=== PATIENT | male | born 1985 | race Caucasian/White ===

== ENCOUNTER 2018-04-09 15:05 | Emergency (ER) | payer SELFPAY ==
[~2018-04-09] VITALS: Ht 188 cm; Wt 95.0 kg
[~2018-04-09 15:05] MED LIST: IBUP-238 PO
[2018-04-09 15:53] VITALS: BP 146/70; PULSE 54; RESP 18; TEMP 98.4; O2SAT 99
[2018-04-09] MEDS ORDERED: IBUP1TAB7 PO (17:09)
[2018-04-09] MEDS ORDERED: CLIN300C5 PO (17:09)
--- NOTE | 2018-04-09 17:14 | PD ---
HPI Chief Complaint: Oral / Dental Pain or Problem Time Seen by Provider: 17:04 Travel History International Travel<30 days: No Contact w/Intl Traveler<30days: No Traveled to known affect area: No History of Present Illness HPI 32-year-old male presents to the emergency room for evaluation of right upper dental pain for the past day. Patient states he broke his tooth about a year ago but has not had any problems with it. This morning when he woke up he began to have severe, aching, throbbing tooth pain above the broken tooth. He applied Orajel but has not taken anything for symptoms. Pain is worsened with touching it. Denies any fever, chills, nausea, vomiting, or drainage. He has associated swelling. He has history of poor teeth due to drug use and poor dental hygiene. States he just got insurance and plans to make a follow-up appointment in a few weeks. PFSH Past Medical History Hx Anticoagulant Therapy: No Blood Disorders: No Bipolar Disorder: Yes (MANIC DEPRESSIVE) Anxiety: Yes Cancer: No Cardiovascular Problems: No Chemotherapy: No Cerebrovascular Accident: No Diabetes: No Diminished Hearing: No Endocrine: No Gastrointestinal Disorders: Yes Genitourinary: Yes (CONGENITAL RIGHT PELVIC KIDNEY) Immune Disorder: No Implanted Vascular Access Dvce: No Musculoskeletal: No Neurologic: No Psychiatric: Yes Reproductive: No Respiratory: No Immunizations Current: Yes Past Surgical History Appendectomy: Yes Hysterectomy: No Other Surgery: No Social History Alcohol Use: Yes (DAILY) Tobacco Use: Yes (1PPD) Substance Use: Yes (IV USER DILAUDID, METHADONE) Allergies-Medications (Allergen,Severity, Reaction): Coded Allergies: No Known Allergies (Verified Adverse Reaction, Unknown, 04/09/18) Reported Meds & Prescriptions Reported Meds & Active Scripts Active Clindamycin (Clindamycin HCl) 300 Mg Cap 300 Mg PO Q6H 10 Days Ibuprofen 800 Mg Tab 800 Mg PO Q8H PRN Review of Systems Except as stated in HPI: all other systems reviewed are Neg Physical Exam Narrative GENERAL: Well-nourished, well-developed male in no acute distress. Afebrile. Ambulatory. SKIN: Focused skin assessment warm/dry. HEAD: Normocephalic. EYES: No scleral icterus. No injection or drainage. DENTAL: Moderate decay throughout. No malocclusion. Tooth #7 is broken and decaying. There is significant surrounding erythema. No obvious edema. No obvious abscess. There is mild tenderness and edema to the right maxillary sinuses. NECK: Supple, trachea midline. No JVD or lymphadenopathy. CARDIOVASCULAR: Regular rate and rhythm without murmurs, gallops, or rubs. RESPIRATORY: Breath sounds equal bilaterally. No accessory muscle use. Data Data Last Documented VS Vital Signs Date Time Temp Pulse Resp B/P (MAP) Pulse Ox O2 Delivery O2 Flow Rate FiO2 04/09/18 15:53 98.4 54 18 146/70 (95) 99 MDM Medical Decision Making Medical Screen Exam Complete: Yes Emergency Medical Condition: Yes Medical Record Reviewed: Yes Differential Diagnosis Dental abscess, dentalgia, gingivitis Narrative Course 32-year-old male presents to the emergency room for evaluation of the past day. States he broke that tooth about 1 year ago and has had no problems with it until today. No systemic signs of infection. Physical exam is reassuring. Tooth #7 is broken with significant decay but no obvious abscess. No surrounding erythema. No evidence of Sebastián's. There is mild right-sided maxillary sinus swelling. Patient was given prescriptions for ibuprofen and clindamycin. Told to follow-up with a dentist which he plans to do in a few weeks once his insurance kicks in. Will return for worsening symptoms. He understands and agrees to plan. Diagnosis Primary Impression: Dental abscess Referrals: Primary Care Physician Additional Instructions: Rest and drink plenty of fluids. Ibuprofen with food as directed, as needed for pain. Clindamycin as directed, until gone. Follow-up with a dentist. Return to the emergency room for worsening symptoms. Med/Other Pt SpecificInfo: Prescription(s) given Scripts Clindamycin (Clindamycin) 300 Mg Cap 300 MG PO Q6H for Infection for 10 Days, #40 CAP 0 Refills Prov: Karen Wright MD 04/09/18 Ibuprofen (Ibuprofen) 800 Mg Tab 800 MG PO Q8H Y for Pain/Inflammation, #21 TAB 0 Refills Prov: Karen Wright MD 04/09/18 Disposition: 01 DISCHARGE HOME Condition: Stable Caro Mckeon Apr 09, 2018 17:14
== END 2018-04-09 17:20 | disposition home or self-care (01) ==
LOC: NEPK 15:05
DX: K04.7 Periapical abscess without sinus (principal); F17.200 Nicotine dependence, unspecified, uncomplicated
CPT/HCPCS: 99283

== ENCOUNTER 2018-10-11 01:55 | Inpatient (IN) ==
[2018-10-11] MEDS ORDERED: Sod Chloride 0.9% Inj 1,000 ML IV.SIG ONE (02:03)
--- NOTE | 2018-10-11 02:10 | ED ---
HPI General Chief complaint: Alcohol Stated complaint: poss od Time Seen by Provider: 10/11/18 01:58 Source: patient Mode of arrival: EMS Limitations: no limitations History of Present Illness HPI narrative: 33-year-old male brought in by EMS for evaluation of alcohol and opiate withdrawal. Patient states that he drinks alcohol heavily between 2-3 pints of whiskey daily as well as uses IV heroin heavily. His last alcohol intake and last use of heroin was yesterday morning. He states he ran out of both of these substances, and that is why he has not had any since. He reports feeling very shaky and tremulous with extreme dry mouth and nausea. He has not vomited. He is describing moderate to severe generalized body aches that are constant. No fevers, cough, recent illness. Patient also believes that there may be a hypodermic/insulin needle that broke off in his left AC fossa that occurred yesterday morning. He admits to feeling depressed, however denies suicidal ideation. Patient presented similarly back in September of this year, however he did not want to be admitted, states that he has not followed up with [facility], however every time he goes there there are no beds available for him. Related Data Home Medications Medication Instructions Recorded Confirmed clonidine HCl 0.1 mg PO BID PRN 10/11/18 10/11/18 Previous Rx's Medication Instructions Recorded chlordiazepoxide HCl 25 mg PO Q6-8H PRN #12 cap 09/12/18 Allergies Allergy/AdvReac Type Severity Reaction Status Date / Time No Known Allergies Allergy Verified 08/17/18 12:11 Review of Systems ROS: all other systems reviewed are negative [facility] Medical History Medical History Alcohol abuse (Acute) Alcohol withdrawal seizure (Acute) Bipolar 1 disorder (Acute) Opiate addiction (Acute) Family History Family History Other Coronary artery disease Social History Social History Substance History: Active Abuse Second Hand Smoke Exposure: Yes Smoking Status: Current every day smoker Tobacco Type: Cigarettes How Often Do You Have a Drink Containing Alcohol: 4 or more times a week Recent Travel in [facility] within the Last 8 Weeks: No Recent Out of Country Travel within the Last 8 Weeks: No Immunization History Tetanus Immunization Year if Known: 2018 Exam Narrative Exam Narrative: GENERAL: Well-developed, well-nourished, awake, alert, tremulous SKIN: Focused skin assessment warm/dry. Left antecubital fossa with track gramajo with mild erythema surrounding the vein, no fluctuance or induration HEAD: Atraumatic. Normocephalic. EYES: Pupils equal and round. No scleral icterus. No injection or drainage. ENT: No nasal bleeding or discharge. Mucous membranes pink and dry. NECK: Trachea midline. No JVD. No nuchal rigidity. CARDIOVASCULAR: Tachycardic, rate 140s, regular. No murmur appreciated. RESPIRATORY: No accessory muscle use. Clear to auscultation. Breath sounds equal bilaterally. GASTROINTESTINAL: Abdomen soft, non-tender, nondistended. MUSCULOSKELETAL: No obvious deformities. No clubbing. No cyanosis. No edema. NEUROLOGICAL: Awake and alert. No obvious cranial nerve deficits. Motor grossly within normal limits. Normal speech. PSYCHIATRIC: Appropriate mood and affect; insight and judgment normal. Course Initial Documented Vital Signs Pulse Rate 138 H 10/11/18 02:02 Respiratory Rate 28 H 10/11/18 02:02 Blood Pressure 145/85 H 10/11/18 02:02 Pulse Oximetry 100 10/11/18 02:02 Last Documented Vital Signs Temperature 98.5 F 10/11/18 03:20 Pulse Rate 122 H 10/11/18 04:45 Respiratory Rate 16 10/11/18 04:45 Blood Pressure 141/79 H 10/11/18 04:45 Pulse Oximetry 99 10/11/18 04:45 Critical Care Time Critical Care Time: Yes Total Critical Care Time: 45 Attestation: Aggregate critical care time was 45 minutes. Time to perform other separately billable procedures was not included in the critical care time. My time did not include minutes spent treating any other patients simultaneously or on activities that did not directly contribute to the patient's treatment. The services I provided to this patient were to treat and/or prevent clinically significant deterioration that could result in: , permanent disability, septic shock, worsening clinical condition I provided critical care services requiring my management, as noted below: Chart data review, documentation time, medication orders and management, vital sign assessments/reviewing monitor data, ordering and reviewing lab tests, ordering and interpreting/reviewing x-rays and diagnostic studies, care of the patient and discussion of the patient with the admitting physicians. Medical Decision Making MDM Narrative Medical decision making narrative: The patient arrives tachycardic with a heart rate of 138 with a temp of 99.1 F. His WBC count is 34. He is an IV drug user and believes that he may have a retained needle in his left AC. There is mild warmth and erythema to this area without fluctuance or induration, as well as an obvious track jeanna. There are no splinter hemorrhages, Osler nodes, Janeway lesions. I do not appreciate a murmur on cardiac exam. Patient was empirically started on IV vancomycin and IV Zosyn, and sepsis workup was performed. CBC is remarkable for leukocytosis of 34,000, left shift, 11% bands. CMP is remarkable for slightly elevated LFTs. Lactic acid is 3.7. Left elbow x-ray shows a linear metallic foreign body in the subcutaneous tissue anteriorly. Chest x-ray shows no acute cardiopulmonary disease. Patient is positive for influenza B. UA is not suggestive of UTI. Patient meets sepsis criteria. He is also likely withdrawing from alcohol and opiates. He remains tachycardic despite receiving 3 L of normal saline IV. He will be given Tamiflu for testing positive for influenza B. I discussed the case with hospitalist Dr. Finley who will admit the patient to her service. Medical Screen Exam Complete: Yes Emergency Medical Condition: Yes Differential Diagnosis Differential Diagnosis: Alcohol withdrawal, opiate withdrawal, sepsis, dehydration/metabolic normality, polysubstance use/intoxication retained foreign body/needle in left arm Lab Data Result diagrams: 10/11/18 02:05 10/11/18 02:05 Lab Results 10/11/18 10/11/18 10/11/18 Range/Units 02:05 02:05 02:05 WBC 34.4 H (4.0-11.0) th/mm3 RBC 4.39 L (4.50-5.90) mil/mm3 Hgb 13.0 (13.0-17.0) gm/dL Hct 37.2 L (39.0-51.0) % MCV 84.8 (80.0-100.0) fL MCH 29.7 (27.0-34.0) pg MCHC 35.0 (32.0-36.0) % RDW 13.9 (11.6-17.2) % Plt Count 152 D (150-450) th/mm3 MPV 8.3 (7.0-11.0) fL Prelim Diff (Auto) Slide review pending Neut % (Auto) 89.7 H (16.0-70.0) % Lymph % (Auto) 6.5 L (9.0-44.0) % [place] % (Auto) 3.2 (0.0-8.0) % Eos % (Auto) 0.0 (0.0-4.0) % Baso % (Auto) 0.6 (0.0-2.0) % Neut # (Auto) 30.8 H (1.8-7.7) th/mm3 Lymph # (Auto) 2.3 (1.0-4.8) th/mm3 [place] # (Auto) 1.1 H (0.0-0.9) th/mm3 Eos # (Auto) 0.0 (0.0-0.4) th/mm3 Baso # (Auto) 0.2 (0.0-0.2) th/mm3 WBC Differential Manual diff final Seg Neuts % (Manual) 79 H (16-70) % Band Neuts % (Manual) 11 H (0-6) % Lymphocytes % (Manual) 5 L (9-44) % Monocytes % (Manual) 4 (0-8) % Eosinophils % (Manual) 1 (0-4) % Abs Neuts (Manual) 31.0 H (1.8-7.7) th/mm3 Differential Comment . Toxic Vacuolation Present H (None) Dohle Bodies Present H (None) Platelet Estimate Normal (Normal) Platelet Morphology Normal (Normal) RBC Morphology Normal (Normal) PT 10.5 (9.8-11.6) sec INR 1.0 Ratio APTT 34.5 H (23.4-31.7) sec Sodium 133 L (136-145) meq/L Potassium 3.2 L (3.5-5.1) meq/L Chloride 97 L (98-107) meq/L Carbon Dioxide 24.0 (21.0-32.0) meq/L Anion Gap 12 (5-15) meq/L BUN 14 (7-18) mg/dL Creatinine 0.96 (0.60-1.30) mg/dL Estimated GFR Greater than 89 (>89) mL/min Random Glucose 116 H (74-106) mg/dL Lactic Acid (0.4-2.0) mmol/L Calcium 8.2 L (8.5-10.1) mg/dL Magnesium 1.5 (1.5-2.5) mg/dL Total Bilirubin 0.3 (0.2-1.0) mg/dL AST 107 H (15-37) U/L ALT 115 H (12-78) U/L Alkaline Phosphatase 152 H (45-117) U/L Total Creatine Kinase (39-308) U/L Total Protein 7.0 (6.4-8.2) g/dL Albumin 3.1 L (3.4-5.0) g/dL Lipase 28 L (73-393) U/L Urine Color (Yellw/Straw) Urine Clarity (Clear) Urine pH (5.0-8.5) Ur Specific [place] (1.002-1.035) Urine Protein (Neg-Trace) mg/dL Urine Glucose (UA) (Negative) mg/dL Urine Ketones (Negative) mg/dL Urine Occult Blood (Negative) Urine Nitrate (Negative) Urine Bilirubin (Negative) Urine Urobilinogen (Less than 2) mg/dL Ur Leukocyte Esterase (Negative) Urine RBC (0-3) /hpf Urine WBC (0-5) /hpf Ur Microscopic Review Urine Opiates Screen (Neg) Ur Barbiturates Screen (Neg) Ur Amphetamines Screen (Neg) U Benzodiazepines Scrn (Neg) Urine Cocaine Screen (Neg) U Cannabinoids Screen (Neg) Serum Alcohol 32 H (0-5) mg/dL 10/11/18 10/11/18 10/11/18 Range/Units 02:30 02:40 03:00 WBC (4.0-11.0) th/mm3 RBC (4.50-5.90) mil/mm3 Hgb (13.0-17.0) gm/dL Hct (39.0-51.0) % MCV (80.0-100.0) fL MCH (27.0-34.0) pg MCHC (32.0-36.0) % RDW (11.6-17.2) % Plt Count (150-450) th/mm3 MPV (7.0-11.0) fL Prelim Diff (Auto) Neut % (Auto) (16.0-70.0) % Lymph % (Auto) (9.0-44.0) % [place] % (Auto) (0.0-8.0) % Eos % (Auto) (0.0-4.0) % Baso % (Auto) (0.0-2.0) % Neut # (Auto) (1.8-7.7) th/mm3 Lymph # (Auto) (1.0-4.8) th/mm3 [place] # (Auto) (0.0-0.9) th/mm3 Eos # (Auto) (0.0-0.4) th/mm3 Baso # (Auto) (0.0-0.2) th/mm3 WBC Differential Seg Neuts % (Manual) (16-70) % Band Neuts % (Manual) (0-6) % Lymphocytes % (Manual) (9-44) % Monocytes % (Manual) (0-8) % Eosinophils % (Manual) (0-4) % Abs Neuts (Manual) (1.8-7.7) th/mm3 Differential Comment Toxic Vacuolation (None) Dohle Bodies (None) Platelet Estimate (Normal) Platelet Morphology (Normal) RBC Morphology (Normal) PT (9.8-11.6) sec INR Ratio APTT (23.4-31.7) sec Sodium (136-145) meq/L Potassium (3.5-5.1) meq/L Chloride (98-107) meq/L Carbon Dioxide (21.0-32.0) meq/L Anion Gap (5-15) meq/L BUN (7-18) mg/dL Creatinine (0.60-1.30) mg/dL Estimated GFR (>89) mL/min Random Glucose (74-106) mg/dL Lactic Acid 3.7 H (0.4-2.0) mmol/L Calcium (8.5-10.1) mg/dL Magnesium (1.5-2.5) mg/dL Total Bilirubin (0.2-1.0) mg/dL AST (15-37) U/L ALT (12-78) U/L Alkaline Phosphatase (45-117) U/L Total Creatine Kinase 83 (39-308) U/L Total Protein (6.4-8.2) g/dL Albumin (3.4-5.0) g/dL Lipase (73-393) U/L Urine Color (Yellw/Straw) Urine Clarity (Clear) Urine pH (5.0-8.5) Ur Specific [place] (1.002-1.035) Urine Protein (Neg-Trace) mg/dL Urine Glucose (UA) (Negative) mg/dL Urine Ketones (Negative) mg/dL Urine Occult Blood (Negative) Urine Nitrate (Negative) Urine Bilirubin (Negative) Urine Urobilinogen (Less than 2) mg/dL Ur Leukocyte Esterase (Negative) Urine RBC (0-3) /hpf Urine WBC (0-5) /hpf Ur Microscopic Review Urine Opiates Screen Pos H (Neg) Ur Barbiturates Screen Neg (Neg) Ur Amphetamines Screen Neg (Neg) U Benzodiazepines Scrn Neg (Neg) Urine Cocaine Screen Neg (Neg) U Cannabinoids Screen Neg (Neg) Serum Alcohol (0-5) mg/dL 10/11/18 Range/Units 03:00 WBC (4.0-11.0) th/mm3 RBC (4.50-5.90) mil/mm3 Hgb (13.0-17.0) gm/dL Hct (39.0-51.0) % MCV (80.0-100.0) fL MCH (27.0-34.0) pg MCHC (32.0-36.0) % RDW (11.6-17.2) % Plt Count (150-450) th/mm3 MPV (7.0-11.0) fL Prelim Diff (Auto) Neut % (Auto) (16.0-70.0) % Lymph % (Auto) (9.0-44.0) % [place] % (Auto) (0.0-8.0) % Eos % (Auto) (0.0-4.0) % Baso % (Auto) (0.0-2.0) % Neut # (Auto) (1.8-7.7) th/mm3 Lymph # (Auto) (1.0-4.8) th/mm3 [place] # (Auto) (0.0-0.9) th/mm3 Eos # (Auto) (0.0-0.4) th/mm3 Baso # (Auto) (0.0-0.2) th/mm3 WBC Differential Seg Neuts % (Manual) (16-70) % Band Neuts % (Manual) (0-6) % Lymphocytes % (Manual) (9-44) % Monocytes % (Manual) (0-8) % Eosinophils % (Manual) (0-4) % Abs Neuts (Manual) (1.8-7.7) th/mm3 Differential Comment Toxic Vacuolation (None) Dohle Bodies (None) Platelet Estimate (Normal) Platelet Morphology (Normal) RBC Morphology (Normal) PT (9.8-11.6) sec INR Ratio APTT (23.4-31.7) sec Sodium (136-145) meq/L Potassium (3.5-5.1) meq/L Chloride (98-107) meq/L Carbon Dioxide (21.0-32.0) meq/L Anion Gap (5-15) meq/L BUN (7-18) mg/dL Creatinine (0.60-1.30) mg/dL Estimated GFR (>89) mL/min Random Glucose (74-106) mg/dL Lactic Acid (0.4-2.0) mmol/L Calcium (8.5-10.1) mg/dL Magnesium (1.5-2.5) mg/dL Total Bilirubin (0.2-1.0) mg/dL AST (15-37) U/L ALT (12-78) U/L Alkaline Phosphatase (45-117) U/L Total Creatine Kinase (39-308) U/L Total Protein (6.4-8.2) g/dL Albumin (3.4-5.0) g/dL Lipase (73-393) U/L Urine Color Colorless (Yellw/Straw) Urine Clarity Clear (Clear) Urine pH 8.0 (5.0-8.5) Ur Specific [place] 1.002 (1.002-1.035) Urine Protein Negative (Neg-Trace) mg/dL Urine Glucose (UA) Negative (Negative) mg/dL Urine Ketones Negative (Negative) mg/dL Urine Occult Blood Negative (Negative) Urine Nitrate Negative (Negative) Urine Bilirubin Negative (Negative) Urine Urobilinogen Less than 2 (Less than 2) mg/dL Ur Leukocyte Esterase Negative (Negative) Urine RBC Less than 1 (0-3) /hpf Urine WBC Less than 1 (0-5) /hpf Ur Microscopic Review Not Reportable Urine Opiates Screen (Neg) Ur Barbiturates Screen (Neg) Ur Amphetamines Screen (Neg) U Benzodiazepines Scrn (Neg) Urine Cocaine Screen (Neg) U Cannabinoids Screen (Neg) Serum Alcohol (0-5) mg/dL Imaging Data Radiologist's impression: Elbow X-Ray 10/11/18 02:05 CONCLUSION: Foreign body as detailed above. Chest X-Ray 10/11/18 03:29 CONCLUSION: No acute cardiopulmonary disease. Discharge Plan Discharge Disposition Patient Disposition: ED Admit(ED Internal Use Only) Discharge Condition Condition: Stable Discharge Order Discharge Orders: ED Use Only Admit Order (Routine); Ordered 10/11/18 Ordered By: Jackosn Robbins Discharge Details Diagnosis: Sepsis, Alcohol withdrawal, Influenza B, Opiate withdrawal, Transaminitis, Foreign body in left upper extremity Physicians Team ED Provider: Jackson Robbins Primary Care Provider: Primary Care Allegra Dennis Attending Provider: Mirta Finley Discharge Interventions Interventions: Vital Signs Last Done: 10/11/18 03:20 Status ED Status: Admitted Patient
[2018-10-11] MEDS ORDERED: Sod Chloride 0.9% Inj 1,000 ML IV.SIG SCH ×2 (02:15→02:30)
[2018-10-11 02:21] LABS: Baso # (Auto) 0.2 th/mm3 (0.0-0.2); Baso % (Auto) 0.6 % (0.0-2.0); Hematocrit 37.2 % (39.0-51.0); Lymph # (Auto) 2.3 th/mm3 (1.0-4.8); Lymph % (Auto) 6.5 % (9.0-44.0); Mean Corpuscular Hemoglobin 29.7 pg (27.0-34.0); Mean Corpuscular Volume 84.8 fL (80.0-100.0); Mean Platelet Volume 8.3 fL (7.0-11.0); Mono # (Auto) 1.1 th/mm3 (0.0-0.9); Mono % (Auto) 3.2 % (0.0-8.0); Neut # (Auto) 30.8 th/mm3 (1.8-7.7); Neut % (Auto) 89.7 % (16.0-70.0); Platelet Count 152 th/mm3 (150-450); Red Blood Count 4.39 mil/mm3 (4.50-5.90); Red Cell Distribution Width 13.9 % (11.6-17.2); White Blood Count 34.4 th/mm3 (4.0-11.0)
[2018-10-11] MEDS ORDERED: Piperacil/Tazo 4.5 GM Premix 4.5 GM/100 ML BAG IV.SIG ONE (02:30)
[2018-10-11] MEDS ORDERED: Vancomycin Inj 1,000 MG in Sodium Chlor 0.9% Inj 250 ML IV.SIG ONE (02:30)
[2018-10-11] MEDS ORDERED: Acetaminophen 325 MG Tablet PO ONE (02:30)
[2018-10-11 02:34] LABS: Activated Partial Thrombo Time 34.5 sec (23.4-31.7); Alanine Aminotransferase 115 U/L (12-78); Albumin 3.1 g/dL (3.4-5.0); Anion Gap 12 meq/L (5-15); Aspartate Aminotransferase 107 U/L (15-37); Blood Urea Nitrogen 14 mg/dL (7-18); Calcium 8.2 mg/dL (8.5-10.1); Chloride 97 meq/L (98-107); Glomerular Filtration Rate Greater Than 89 mL/min (>89); Glucose,Random 116 mg/dL (74-106); Lipase 28 U/L (73-393); Magnesium 1.5 mg/dL (1.5-2.5); Potassium 3.2 meq/L (3.5-5.1); Prothrombin Time 10.5 sec (9.8-11.6); Sodium 133 meq/L (136-145)
[2018-10-11 02:36] LABS: Alkaline Phosphatase 152 U/L (45-117)
--- NOTE | 2018-10-11 02:37 | XR ---
EXAM DATE: 10/11/2018 2:34 AM EST AGE/SEX: 33 years / Male INDICATIONS: Possible broken off hypodermic needle foreign body in the left AC. CLINICAL DATA: This is the patient's initial encounter. Patient reports that signs and symptoms have been present for 1 day and indicates a pain score of 7/10. MEDICAL/SURGICAL HISTORY: None. None. COMPARISON: No prior exams available for comparison. FINDINGS: Bony structures are intact and in normal alignment. Joints are intact without dislocation or signifi cant arthropathy. Osseous density is normal. Small metallic foreign body is seen within the subcutan eous tissues of the antecubital fossa. This is fairly superficial within the subcutaneous tissues jus t deep to the skin surface. CONCLUSION: Foreign body as detailed above. Electronically signed by: Taran Mckeon MD 10/11/2018 2:35 AM EST
[2018-10-11 03:19] LABS: Alcohol 32 mg/dL (0-5)
[2018-10-11 03:21] LABS: Eosinophils 1 % (0-4); Lymphocytes 5 % (9-44); Monocytes 4 % (0-8)
[2018-10-11 03:22] LABS: Dohle Bodies Present; Platelet Estimate Normal (Normal); Platelet Morphology Normal (Normal); RBC Morphology Normal (Normal); Toxic Vacuolation Present
[2018-10-11 03:39] LABS: Amphetamine Screen,Urine Neg (Neg); Barbiturate Screen,Urine Neg (Neg); Cannabinoid Screen,Urine Neg (Neg); Cocaine Screen,Urine Neg (Neg)
[2018-10-11 03:45] LABS: Opiate Screen,Urine Pos (Neg)
--- NOTE | 2018-10-11 03:50 | XR ---
EXAM DATE: 10/11/2018 3:38 AM EST AGE/SEX: 33 years / Male INDICATIONS: Cough, shortness of breath. CLINICAL DATA: This is the patient's initial encounter. Patient reports that signs and symptoms have been present for 1 day and indicates a pain score of 0/10. MEDICAL/SURGICAL HISTORY: None. None. COMPARISON: [facility], CHEST SINGLE AP, 07/27/2013. . FINDINGS: A single AP view of the chest demonstrates the lungs to be symmetrically aerated without evidence of mass, infiltrate or effusion. The cardiomediastinal contours are unremarkable. Posttraumatic osteoly sis involving the distal left clavicle is a new finding from the prior study. CONCLUSION: No acute cardiopulmonary disease. Electronically signed by: Taran Mckeon MD 10/11/2018 3:49 AM EST
[2018-10-11 03:52] LABS: Bilirubin,Urine Negative (Negative); Clarity,Urine Clear (Clear); Color,Urine Colorless (Yellw/Straw); Glucose,Urine (UA) Negative (Negative); Leukocyte Esterase,Urine Negative (Negative); Nitrite,Urine Negative (Negative); Specific Gravity,Urine 1.002 (1.002-1.035)
[2018-10-11] MEDS ORDERED: Bisacodyl 10 MG Supp RECTAL PRN (04:04)
[2018-10-11] MEDS ORDERED: Naloxone Inj 0.4 MG/ML Vial IV.PUSH PRN (04:04)
[2018-10-11] MEDS ORDERED: Acetaminophen 325 MG Tablet PO PRN (04:04)
[2018-10-11] MEDS ORDERED: Haloperidol Inj 5 MG/ML Ampul IV.PUSH PRN (04:06)
[2018-10-11] MEDS ORDERED: Vancomycin Consult Pharmacy OTHER PRN (04:09)
[2018-10-11] MEDS ORDERED: Ibuprofen 600 MG Tablet PO PRN (04:13)
[2018-10-11] MEDS ORDERED: Potassium Chlor 20 mEq Premix 20 MEQ/100 ML PIGGYBACK IV.SIG SCH (04:15)
[2018-10-11] MEDS: Sod Chloride 0.9% Inj 1,000 ML IV.CONT SCH ×3 (04:26→19:52)
--- NOTE | 2018-10-11 04:58 | P.HP ---
History of Present Illness Service: [facility] Primary Care Physician: No Primary Care Physician History of Present Illness: 33-year-old male with past medical history significant for alcohol and opiate abuse presents to the emergency department for the evaluation of sudden onset headache, nausea/vomiting and shaking. The patient reports his symptoms started around 6 PM last night. He initially thought that he was going through alcohol and opiate withdrawal as it is been approximately 24 hours since his last use of either substance. He reports to using 1 g of heroin intravenously daily and drinking 2 pints of hard alcohol daily. He has previously had a seizure from alcohol withdrawal. He denies any fevers/chills. No chest pain or shortness of breath. No focal neurologic deficits. No back pain. Inpatient Certification: I certify that the inpatient services were ordered in accordance with Medicare regulations governing the order. This includes certification that hospital inpatient services are reasonable and necessary and in the case of services not specified as inpatient-only under 42 CFR 419.22(n), that they are appropriately provided as inpatient services in accordance to with the 2-midnight benchmark under 43 CFR 412.3(e) Estimated Total Length of Stay (Days): 3 Plans for Post Hospital Care: Home Review of Systems All other systems reviewed negative except as stated in HPI PMFSH - History History Provided By: Patient - Medical History Medical History: Medical History (Last Updated 10/11/18 @ 04:45 by Mirta Finley MD) Alcohol abuse Alcohol withdrawal seizure Bipolar 1 disorder Opiate addiction - Surgical History Surgical History: Surgical History (Last Reviewed 10/11/18 @ 04:45 by Mirta Finley MD) H/O shoulder surgery Hx of appendectomy - Family History Family History: Family History (Last Updated 10/11/18 @ 04:47 by Mirta Finley MD) Other Coronary artery disease - Social History I have reviewed the patient's Social History: Yes - Tobacco History Second Hand Smoke Exposure: Yes Tobacco Use In Past 30 Days: Yes Smoking Status: Current every day smoker Tobacco Type: Cigarettes - Alcohol History How Often Do You Have a Drink Containing Alcohol: 4 or more times a week - Substance Use History Substance History: Active Abuse - Substance Use Type Heroin Status: Active - Travel History Recent Travel in the [place] Within the Last 8 Weeks: No Recent Travel Out of the Country Within the Last 8 Weeks: No - Immunization History Tetanus Immunization: Unsure Tetanus Immunization Year if Known: 2017 Medications and Allergies Active Medications: Active Medications Acetaminophen (Tylenol) 650 mg PO Q4H PRN PRN Reason: headache/fever/pain1-4 Al Hydroxide/Mg Hydroxide (Milk Of Magnesia Liq) 30 ml PO Q12H PRN PRN Reason: Mild Constipation Bisacodyl (Dulcolax Supp) 10 mg RECTAL DAILY PRN PRN Reason: SEVERE CONSITIPATION Clonidine HCl (Catapres) 0.1 mg PO Q6H PRN PRN Reason: For SBP >/= 180, DBP >/= 100 Flumazenil (Romazecon Inj) 0.2 mg IV.PUSH Q1M PRN PRN Reason: OVERSEDATION Haloperidol Lactate (Haldol Inj) 1 mg IV.PUSH Q15M PRN PRN Reason: for severe agitation Sodium Chloride (Ns Inj) 1,000 mls @ 150 mls/hr IV.CONT .Q6H40M SUSAN Last Admin: 10/11/18 04:26 Dose: 150 mls/hr Multivitamins 10 ml/ Folic (Acid 1 mg/ Sodium Chloride) 510.2 mls @ 125 mls/hr IV.SIG DAILY SUSAN Stop: 10/16/18 08:59 Thiamine HCl 100 mg/ Sodium (Chloride) 101 mls @ 100 mls/hr IV.SIG DAILY SUSAN Stop: 10/14/18 08:59 Potassium Chloride (Kcl 20 Meq Premix Inj) 20 meq in 100 mls @ 50 mls/hr IV.SIG Q2H SUSAN Stop: 10/11/18 08:14 Last Admin: 10/11/18 04:25 Dose: 50 mls/hr Piperacillin/Tazobactam/Dextrose (Zosyn 4.5 Gm Premix) 4.5 gm in 100 mls @ 200 mls/hr IV.SIG Q6H SUSAN Magnesium Sulfate/Dextrose (Magnesium Sulfate 1 Gm/D5w 100 Ml Premix) 100 mls @ 100 mls/hr IV.SIG Q1H SUSAN Stop: 10/11/18 06:59 Ibuprofen (Motrin) 600 mg PO Q6H PRN PRN Reason: pain scale 5 to 10 Lactulose (Lactulose Liq) 30 ml PO DAILY PRN PRN Reason: SEVERE CONSITIPATION Lorazepam (Ativan) 1 mg PO Q4H PRN PRN Reason: for CIWA 8-10 Lorazepam (Ativan) 2 mg PO Q2H PRN PRN Reason: for CIWA 11-14 Lorazepam (Ativan Inj) 2 mg IV.PUSH Q2H PRN PRN Reason: for CIWA 11-14 Lorazepam (Ativan Inj) 2 mg IV.PUSH Q1H PRN PRN Reason: for CIWA 15-20 Lorazepam (Ativan Inj) 2 mg IV.PUSH Q15M PRN PRN Reason: for CIWA > 20 Lorazepam (Ativan Inj) 1 mg IV.PUSH Q4H PRN PRN Reason: for CIWA 8-10 Naloxone HCl (Narcan Inj) 0.4 mg IV.PUSH UNSCH PRN PRN Reason: SEE LABEL COMMENTS Ondansetron HCl (Zofran Inj) 4 mg IV.PUSH Q6H PRN PRN Reason: NAUSEA OR VOMITING Oseltamivir Phosphate (Tamiflu) 75 mg PO BID [facility] Stop: 10/16/18 08:59 Pharmacy Profile Note (Vancomycin Consult Pharmacy) 1 each OTHER UNSCH PRN PRN Reason: Pharmacy to dose Senna/Docusate Sodium (Kathie-Colace) 1 tab PO BID [facility] Sennosides (Senokot) 17.2 mg PO Q12H PRN PRN Reason: Moderate Constipation Sodium Chloride (Ns Flush) 2 ml IV.FLUSH PRN PRN PRN Reason: FLUSH AFTER USING IV ACCESS Sodium Chloride (Ns Flush) 2 ml IV.FLUSH BID SUSAN Sodium Chloride (Ns Flush) 2 ml IV.FLUSH PRN PRN PRN Reason: FLUSH AFTER USING IV ACCESS Thiamine HCl (Vitamin B1) 100 mg PO DAILY [facility] Allergies Allergy/AdvReac Type Severity Reaction Status Date / Time No Known Allergies Allergy Verified 08/17/18 12:11 Home Medications Medication Instructions Recorded Confirmed Type clonidine HCl 0.1 mg PO BID PRN 10/11/18 10/11/18 History Exam Vital signs: Vital Signs 10/11/18 02:02 10/11/18 02:27 10/11/18 03:20 Temperature 99.1 F 98.5 F Pulse Rate 138 H 136 H 110 H Respiratory Rate 28 H 25 H 13 Blood Pressure 145/85 H 145/85 H 144/82 H Pulse Oximetry 100 100 100 Intake & Output 10/10/18 10/10/18 10/11/18 06:59 18:59 06:59 Intake Total 2350 / 2350 Balance 2350 / 2350 Weight 74.843 kg Intake: IV 2350 / 2350 Zosyn 4.5 GM Premix 4.5 gm In 100 / 100 100 ml @ 200 mls/hr IV.SIG ONCE ONE Rx#:[id number] NS Inj 1,000 ML @ 1000 mls/hr 1999 / 1999 IV.SIG BOLUS SUSAN Rx#:[id number] Vancomycin Inj 1,000 MG In NS 250 / 250 Inj 250 ML @ 250 mls/hr IV.SIG ONCE ONE Rx#:[id number] Narrative: Gen.: Pale male, lying in bed, shaking Head: Normocephalic. Atraumatic. EENT: Pupils equal round and reactive to light. Nose without drainage. Airway intact. Throat without injection. Cardiovascular: Regular rate and rhythm. No murmurs, rubs or gallops. Respiratory: Lungs clear to auscultation bilaterally. No wheezes or rhonchi. Abdomen: Soft, nontender, nondistended. No peritoneal signs. Musculoskeletal: No gross deformities. No edema. Skin: No obvious rashes or erythema. Neuro: Sensory and motor grossly intact. Cranial nerves II through XII grossly intact. Results - Labs CBC & Chem 7: 10/11/18 02:05 10/11/18 02:05 Labs: Laboratory Results - last 24 hr 10/11/18 10/11/18 10/11/18 02:05 02:05 02:05 WBC 34.4 H RBC 4.39 L Hgb 13.0 Hct 37.2 L MCV 84.8 MCH 29.7 MCHC 35.0 RDW 13.9 Plt Count 152 D MPV 8.3 Prelim Diff (Auto) Slide review pending Neut % (Auto) 89.7 H Lymph % (Auto) 6.5 L [place] % (Auto) 3.2 Eos % (Auto) 0.0 Baso % (Auto) 0.6 Neut # (Auto) 30.8 H Lymph # (Auto) 2.3 [place] # (Auto) 1.1 H Eos # (Auto) 0.0 Baso # (Auto) 0.2 WBC Differential Manual diff final Seg Neuts % (Manual) 79 H Band Neuts % (Manual) 11 H Lymphocytes % (Manual) 5 L Monocytes % (Manual) 4 Eosinophils % (Manual) 1 Abs Neuts (Manual) 31.0 H Differential Comment . Toxic Vacuolation Present H Dohle Bodies Present H Platelet Estimate Normal Platelet Morphology Normal RBC Morphology Normal PT 10.5 INR 1.0 APTT 34.5 H Sodium 133 L Potassium 3.2 L Chloride 97 L Carbon Dioxide 24.0 Anion Gap 12 BUN 14 Creatinine 0.96 Estimated GFR Greater than 89 Random Glucose 116 H Lactic Acid Calcium 8.2 L Magnesium 1.5 Total Bilirubin 0.3 AST 107 H ALT 115 H Alkaline Phosphatase 152 H Total Creatine Kinase Total Protein 7.0 Albumin 3.1 L Lipase 28 L Urine Color Urine Clarity Urine pH Ur Specific [place] Urine Protein Urine Glucose (UA) Urine Ketones Urine Occult Blood Urine Nitrate Urine Bilirubin Urine Urobilinogen Ur Leukocyte Esterase Urine RBC Urine WBC Ur Microscopic Review Urine Opiates Screen Ur Barbiturates Screen Ur Amphetamines Screen U Benzodiazepines Scrn Urine Cocaine Screen U Cannabinoids Screen Serum Alcohol 32 H 10/11/18 10/11/18 10/11/18 02:30 02:40 03:00 WBC RBC Hgb Hct MCV MCH MCHC RDW Plt Count MPV Prelim Diff (Auto) Neut % (Auto) Lymph % (Auto) [place] % (Auto) Eos % (Auto) Baso % (Auto) Neut # (Auto) Lymph # (Auto) [place] # (Auto) Eos # (Auto) Baso # (Auto) WBC Differential Seg Neuts % (Manual) Band Neuts % (Manual) Lymphocytes % (Manual) Monocytes % (Manual) Eosinophils % (Manual) Abs Neuts (Manual) Differential Comment Toxic Vacuolation Dohle Bodies Platelet Estimate Platelet Morphology RBC Morphology PT INR APTT Sodium Potassium Chloride Carbon Dioxide Anion Gap BUN Creatinine Estimated GFR Random Glucose Lactic Acid 3.7 H Calcium Magnesium Total Bilirubin AST ALT Alkaline Phosphatase Total Creatine Kinase 83 Total Protein Albumin Lipase Urine Color Urine Clarity Urine pH Ur Specific [place] Urine Protein Urine Glucose (UA) Urine Ketones Urine Occult Blood Urine Nitrate Urine Bilirubin Urine Urobilinogen Ur Leukocyte Esterase Urine RBC Urine WBC Ur Microscopic Review Urine Opiates Screen Pos H Ur Barbiturates Screen Neg Ur Amphetamines Screen Neg U Benzodiazepines Scrn Neg Urine Cocaine Screen Neg U Cannabinoids Screen Neg Serum Alcohol 10/11/18 03:00 WBC RBC Hgb Hct MCV MCH MCHC RDW Plt Count MPV Prelim Diff (Auto) Neut % (Auto) Lymph % (Auto) [place] % (Auto) Eos % (Auto) Baso % (Auto) Neut # (Auto) Lymph # (Auto) [place] # (Auto) Eos # (Auto) Baso # (Auto) WBC Differential Seg Neuts % (Manual) Band Neuts % (Manual) Lymphocytes % (Manual) Monocytes % (Manual) Eosinophils % (Manual) Abs Neuts (Manual) Differential Comment Toxic Vacuolation Dohle Bodies Platelet Estimate Platelet Morphology RBC Morphology PT INR APTT Sodium Potassium Chloride Carbon Dioxide Anion Gap BUN Creatinine Estimated GFR Random Glucose Lactic Acid Calcium Magnesium Total Bilirubin AST ALT Alkaline Phosphatase Total Creatine Kinase Total Protein Albumin Lipase Urine Color Colorless Urine Clarity Clear Urine pH 8.0 Ur Specific [place] 1.002 Urine Protein Negative Urine Glucose (UA) Negative Urine Ketones Negative Urine Occult Blood Negative Urine Nitrate Negative Urine Bilirubin Negative Urine Urobilinogen Less than 2 Ur Leukocyte Esterase Negative Urine RBC Less than 1 Urine WBC Less than 1 Ur Microscopic Review Not Reportable Urine Opiates Screen Ur Barbiturates Screen Ur Amphetamines Screen U Benzodiazepines Scrn Urine Cocaine Screen U Cannabinoids Screen Serum Alcohol - Imaging Impressions Elbow X-Ray 10/11/18 02:05 CONCLUSION: Foreign body as detailed above. Chest X-Ray 10/11/18 03:29 CONCLUSION: No acute cardiopulmonary disease. Caprini VTE Risk Assessment Caprini VTE Risk Assessment: No/Low Risk (score <= 1) Caprini Risk Assessment Model: Point Value = 1 Point Value = 2 Point Value = 3 Point Value = 5 Age 41-60 Minor surgery BMI > 25 kg/m2 Swollen legs Varicose veins or History of unexplained or recurrent spontaneous Oral contraceptives or hormone replacement Sepsis (< 1 month) Serious lung disease, including pneumonia (< 1 month) Abnormal pulmonary function Acute myocardial infarction Congestive heart failure (< 1 month) History of inflammatory bowel disease Medical patient at bed rest Age 61-74 Arthroscopic surgery Major open surgery (> 45 min) Laparoscopic surgery (> 45 min) Malignancy Confined to bed (> 72 hours) Immobilizing plaster cast Central venous access Age >= 75 History of VTE Family history of VTE Factor V Leiden Prothrombin [id number] Lupus anticoagulant Anticardiolipin antibodies Elevated serum homocysteine Heparin-induced thrombocytopenia Other congenital or acquired thrombophilia Stroke (< 1 month) Elective arthroplasty Hip, pelvis, or leg fracture Acute spinal cord injury (< 1 month) Prophylaxis Regimen: Total Risk Factor Score Risk Level Prophylaxis Regimen 0-1 Low Early ambulation 2 Moderate Order ONE of the following: *Sequential Compression Device (SCD) *Heparin 5000 units SQ BID 3-4 Higher Order ONE of the following medications: *Heparin 5000 units SQ TID *Enoxaparin/Lovenox 40 mg SQ daily (WT < 150 kg, CrCl > 30 mL/min) *Enoxaparin/Lovenox 30 mg SQ daily (WT < 150 kg, CrCl > 10-29 mL/min) *Enoxaparin/Lovenox 30 mg SQ BID (WT < 150 kg, CrCl > 30 mL/min) AND/OR *Sequential Compression Device (SCD) 5 or more Highest Order ONE of the following medications: *Heparin 5000 units SQ TID (Preferred with Epidurals) *Enoxaparin/Lovenox 40 mg SQ daily (WT < 150 kg, CrCl > 30 mL/min) *Enoxaparin/Lovenox 30 mg SQ daily (WT < 150 kg, CrCl > 10-29 mL/min) *Enoxaparin/Lovenox 30 mg SQ BID (WT < 150 kg, CrCl > 30 mL/min) AND *Sequential Compression Device (SCD) Assessment and Plan - Plan Assessment/plan: 1. Sepsis/influenza Patient with leukocytosis, tachycardia and elevated lactic acid Influenza positive Tamiflu Concern for bacteremia given IV drug abuse Blood cultures pending Vancomycin and Zosyn Follow cultures Passive IV fluid hydration 2. Alcohol/opiate withdrawal [facility] protocol Thiamine/multivitamins Patient reports he is actively trying to quit, has attempted to find a bed at [facility] on multiple occasions. Case management consulted to assist. FEN Regular diet NS at 150 cc/hour Electrolytes: Status post p.o. repletion of potassium, monitor BMP
[2018-10-11] MEDS ORDERED: Mag Sulf 1 gm/100 ml Premix 100 ML IV.SIG SCH ×2 (05:00→10:30)
--- NOTE | 2018-10-11 09:03 | US ---
EXAM DATE: 10/11/2018 8:45 AM EST AGE/SEX: 33 years / Male INDICATIONS: Evaluate for needle in left arm that broke off. CLINICAL DATA: This is the patient's initial encounter. Patient reports that signs and symptoms have been present for 1 day and indicates a pain score of 0/10. MEDICAL/SURGICAL HISTORY: . ETOH. Opiate abuse. Bipolar. IVDU. Appendectomy. Shoulder surger y. COMPARISON: C, ELBOW LIMITED LEFT 2V, 10/11/2018. . FINDINGS: Grayscale and Doppler ultrasound imaging of the left antecubital fossa was performed. A linear echoge gerald nonshadowing structure measuring 6 mm in length correlates with the a linear radiopaque foreign b storm identified on recent x-ray. It is located between 1 and 2 mm deep to the skin. There is no surrou nding fluid collection or abscess. Doppler imaging demonstrates no abnormality. CONCLUSION: The 6 mm needle fragment is identified in the antecubital fossa and measures approximately 2 mm from the skin surface. A jeanna was placed on the overlying skin. Electronically signed by: Jose F Chiang MD 10/11/2018 9:01 AM EST
[2018-10-11] MEDS: Oseltamivir Phosphate 75 MG Capsule PO SCH ×2 (10:05→20:01)
[2018-10-11 10:12] LABS: Baso # (Auto) 0.1 th/mm3 (0.0-0.2); Baso % (Auto) 0.3 % (0.0-2.0); Hematocrit 36.3 % (39.0-51.0); Hemoglobin 12.2 gm/dL (13.0-17.0); Lymph # (Auto) 1.6 th/mm3 (1.0-4.8); Lymph % (Auto) 6.7 % (9.0-44.0); Mean Corpuscular HGB Conc 33.7 % (32.0-36.0); Mean Corpuscular Hemoglobin 29.2 pg (27.0-34.0); Mean Corpuscular Volume 86.7 fL (80.0-100.0); Mean Platelet Volume 8.4 fL (7.0-11.0); Mono # (Auto) 0.8 th/mm3 (0.0-0.9); Neut # (Auto) 22.2 th/mm3 (1.8-7.7); Platelet Count 120 th/mm3 (150-450); Red Blood Count 4.19 mil/mm3 (4.50-5.90); Red Cell Distribution Width 14.3 % (11.6-17.2); White Blood Count 24.7 th/mm3 (4.0-11.0)
[2018-10-11 10:34] LABS: Anion Gap 8 meq/L (5-15); Blood Urea Nitrogen 9 mg/dL (7-18); Calcium 7.4 mg/dL (8.5-10.1); Carbon Dioxide 23.4 meq/L (21.0-32.0); Chloride 107 meq/L (98-107); Glomerular Filtration Rate Greater Than 89 mL/min (>89); Glucose,Random 111 mg/dL (74-106); Magnesium 2.1 mg/dL (1.5-2.5); Potassium 3.7 meq/L (3.5-5.1); Sodium 138 meq/L (136-145)
[2018-10-11 10:43] LABS: Albumin 2.6 g/dL (3.4-5.0); Calcium-Albumin Corrected 8.5 mg/dL (8.5-10.1)
[2018-10-11] MEDS: Piperacil/Tazo 4.5 GM Premix 4.5 GM/100 ML BAG IV.SIG SCH ×3 (10:50→20:01)
[2018-10-11 11:07] LABS: Hepatitits B Surface Antigen Nonreactive (Nonreactive)
[2018-10-11] MEDS: Senna/Docusate Sodium 8.6/50 MG Tablet PO SCH ×2 (11:07→20:01)
--- NOTE | 2018-10-11 11:22 | P.PNADD ---
Addendum to Inpatient Note Reason for Addendum: Additional Documentation Additional information: Nursing reports patient is scoring a 21 up to a 29 on his CIWA score. Patient himself denies any nausea or diarrhea. Says he has eaten much. Says his left arm does not hurt. Patient reports that the patient has a needle fragment that is being radiographically detected on an ultrasound in his left AC fossa. Patient says he recently broke this off. Given the pt's significant septic status, it warrants evaluation for removal - consulting hand surgery. Otherwise on exam is clear lungs bilaterally, unlabored breathing Slightly tachycardic rate, regular rhythm Awake and alert, appears to be having mild diffuse tremors secondary to withdrawal We will start low-dose scheduled Librium given his elevated LFTs
[2018-10-11 11:35] LABS: Hepatitis A IgM Antibody Nonreactive (Nonreactive)
[2018-10-11] MEDS: Multivitamin Inj 10 ML, Folic Acid Inj 1 MG in Sodium Chlor 0.9% Inj 500 ML IV.SIG SCH (15:35)
[2018-10-11] MEDS: Vancomycin Inj 1,500 MG in Sodium Chlor 0.9% Inj 500 ML IV.SIG SCH ×2 (15:35→22:16)
--- NOTE | 2018-10-11 17:05 | ECG ---
Date Performed: 10/11/2018 Time Performed: 02:11:07 PTAGE: 33 years EKG: SINUS TACHYCARDIA POSSIBLE RIGHT VENTRICULAR CONDUCTION DELAY Compared to previous tracing, sinus rate is somewhat increased. EKG now shows normal R wave transition and the Left axis deviation has resolved ABNORMAL RHYTHM ECG PREVIOUS TRACING : 09/12/2018 15.27 DOCTOR: Elizabeth Thompson Interpretating Date/Time 10/11/2018 17:03:53
[2018-10-11] MEDS: Dexmedetomidine Inj 200 MCG in Sodium Chlor 0.9% Inj 50 ML IV.CONT PRN ×2 (17:33→19:54)
[2018-10-11] MEDS ORDERED: Dexmedetomidine Inj 1,000 MCG in Sodium Chlor 0.9% Inj 240 ML IV.CONT PRN (20:32)
[2018-10-12] MEDS: Sod Chloride 0.9% Inj 1,000 ML IV.CONT SCH (03:32)
[2018-10-12] MEDS: Piperacil/Tazo 4.5 GM Premix 4.5 GM/100 ML BAG IV.SIG SCH ×4 (03:33→22:11)
[2018-10-12 05:24] LABS: Baso # (Auto) 0.1 th/mm3 (0.0-0.2); Baso % (Auto) 0.5 % (0.0-2.0); Eos # (Auto) 0.2 th/mm3 (0.0-0.4); Eos % (Auto) 1.4 % (0.0-4.0); Hematocrit 37.4 % (39.0-51.0); Hemoglobin 12.5 gm/dL (13.0-17.0); Lymph # (Auto) 2.5 th/mm3 (1.0-4.8); Lymph % (Auto) 22.6 % (9.0-44.0); Mean Corpuscular HGB Conc 33.3 % (32.0-36.0); Mean Corpuscular Hemoglobin 29.5 pg (27.0-34.0); Mean Corpuscular Volume 88.7 fL (80.0-100.0); Mean Platelet Volume 8.6 fL (7.0-11.0); Mono # (Auto) 0.5 th/mm3 (0.0-0.9); Mono % (Auto) 4.3 % (0.0-8.0); Neut # (Auto) 7.9 th/mm3 (1.8-7.7); Neut % (Auto) 71.2 % (16.0-70.0); Platelet Count 110 th/mm3 (150-450); Red Blood Count 4.22 mil/mm3 (4.50-5.90); Red Cell Distribution Width 14.5 % (11.6-17.2); White Blood Count 11.1 th/mm3 (4.0-11.0)
[2018-10-12 05:30] LABS: Anion Gap 9 meq/L (5-15); Blood Urea Nitrogen 8 mg/dL (7-18); Calcium 7.4 mg/dL (8.5-10.1); Carbon Dioxide 20.2 meq/L (21.0-32.0); Chloride 112 meq/L (98-107); Glomerular Filtration Rate Greater Than 89 mL/min (>89); Glucose,Random 77 mg/dL (74-106); Magnesium 1.9 mg/dL (1.5-2.5); Potassium 3.8 meq/L (3.5-5.1); Sodium 141 meq/L (136-145)
[2018-10-12 05:37] LABS: Albumin 2.4 g/dL (3.4-5.0); Calcium-Albumin Corrected 8.7 mg/dL (8.5-10.1)
[2018-10-12] MEDS: Oseltamivir Phosphate 75 MG Capsule PO SCH ×2 (08:01→20:49)
[2018-10-12] MEDS: Thiamine Inj 100 MG in Sodium Chlor 0.9% Inj 100 ML IV.SIG SCH (08:02)
[2018-10-12] MEDS: Senna/Docusate Sodium 8.6/50 MG Tablet PO SCH ×2 (08:02→20:37)
[2018-10-12] MEDS: Multivitamin Inj 10 ML, Folic Acid Inj 1 MG in Sodium Chlor 0.9% Inj 500 ML IV.SIG SCH (11:00)
[2018-10-12] MEDS: Vancomycin Inj 1,500 MG in Sodium Chlor 0.9% Inj 500 ML IV.SIG SCH ×2 (11:00→22:56)
--- NOTE | 2018-10-12 12:26 | P.DIET ---
Nutritional Evaluation Type of nutrition evaluation: initial Nutrition consult regarding: Diet Evaluation Nutrition screening: Weight Loss > 10 lbs Screening comments: 10/12 WLS Objective - Diagnosis sepsis, influenza b, alcohol w/d, opiate w/d - Objective Body Mass Index: 21.9 % IBW: 89 (IBW = 196lb) Body Weight Used for Calculations: Actual (79.5kg) Energy Needs - Lower Range (kCal/kg): 30 Energy Needs - Upper Range (kCal/kg): 35 Lower Limit kCal/kg (kCals): 2,385 Upper Limit kCal/kg (kCals): 2,783 Lower Limit Protein Factor (Grams per Kg): 1.2 Upper Limit Protein Factor (Grams per Kg): 1.4 Lower Protein Needs (Protein): 95 Upper Protein Needs (Protein): 111 Dietitian Reviewed in Medical Record: Current diet, Curent medications, Intake & Output, Labs, Medical history Diet Order: regular Oral Diet Intake Amount: Poor <50% Objective Comments: PMH: alcohol abuse, withdrawal seizures, bipolar I disorder, opiate addiction Labs: MVI, tamiflu, zosyn, vit B1 Assessment Assessment: Pt currently at nutritional risk r/t reported unplanned wt loss for more than 10lbs. Pt currently consuming around 25-50% for most meals. RD to recommend Ensure Enlive TID as PO supplement for additional nutrition. Continue to monitor PO and supplement intake. Labs reviewed, dietitian following. Recommendations: 1. RD to recommend Ensure Enlive TID as PO supplement for additional nutrition 2. Continue to monitor PO and supplement intake 3. Dietitian following Dietitian to Monitor: Lab values, Supplement acceptance, Intake & Output, Diet tolerance, Weight change, PO Intake, Medical course
[2018-10-12] MEDS ORDERED: Acetaminophen 325 MG Tablet PO PRN (14:46)
[2018-10-12] MEDS ORDERED: Naloxone Inj 0.4 MG/ML Vial IV.PUSH PRN (14:46)
--- NOTE | 2018-10-12 14:59 | P.PNIM ---
Subjective Interval history: Plan poor appetite. Mild anxiety. Chills and fever. No complaint chest pain or shortness of breath or palpitations. Requesting clonidine and Ultram to help with drug and alcohol withdrawal. Patient still with muscle aches. Physical Exam Vital signs: Last Vital Signs Temp 98.5 F 10/12/18 12:00 Pulse 46 L 10/12/18 12:00 Resp 32 H 10/12/18 12:00 BP 164/93 H 10/12/18 12:00 Pulse Ox 95 10/12/18 12:00 Intake & Output 10/10/18 10/11/18 10/12/18 10/13/18 06:59 06:59 06:59 06:59 Intake Total 3450 / 3450 5582.2 / 5582.2 Output Total 1999 Balance 3450 / 3450 3582.2 / 3582.2 Weight 77.111 kg 77 kg Constitutional no acute distress Routine Respiratory Exam Present CTA bilaterally Routine Cardiovascular Exam Present RRR; Absent murmur Routine Abdominal Exam Present soft and normoactive bowel sounds; Absent tenderness and distended Routine Extremities Exam Absent cyanosis, clubbing and edema Routine Neurological Exam Present alert, oriented X3, moving all extremities and normal speech Results Labs CBC & Chem 7: 10/12/18 04:33 10/12/18 04:33 Labs: Microbiology 10/11/18 02:30 Blood - Peripheral Aerobic Blood Culture - Preliminary No growth in 1 day 10/11/18 02:30 Blood - Peripheral Anaerobic Blood Culture - Preliminary No growth in 1 day 10/11/18 02:40 Blood - Peripheral Aerobic Blood Culture - Preliminary No growth in 1 day 10/11/18 02:40 Blood - Peripheral Anaerobic Blood Culture - Preliminary No growth in 1 day Assessment and Plan (1) Sepsis: Code(s): A41.9 - Sepsis, unspecified organism Status: Acute (2) Influenza B: Code(s): J10.1 - Influenza due to other identified influenza virus with other respiratory manifestations Status: Acute (3) Opiate withdrawal: Code(s): F11.23 - Opioid dependence with withdrawal Status: Acute (4) Alcohol withdrawal: Code(s): F10.239 - Alcohol dependence with withdrawal, unspecified Status: Acute Plan 33-year-old white male with asked medical history for alcohol and opiate abuse presented with headache, nausea vomiting and chills Sepsis present on admission with leukocytosis, tachycardia with influenza- Continue Tamiflu Empiric IV Zosyn and vancomycin given due to history of IV drug use Preliminary blood culture shows no growth at this time, will discontinue antibiotics if remains negative. Leukocytosis has been trending down. Supportive care and IV fluid hydration Alcohol & opiate abuse with withdrawal Continue CIWA protocol Low-dose Librium Schedule clonidine Continue thiamine and multivitamins. Secession counseling and follow-up as an outpatient for continued drug rehab Anorexiastatus post dietitian evaluation, add in life supplement Hypokalemiareplete DVT prophylaxisSCD Transfer out of the intensive care unit Progress Note: Quality VTE Deep Vein Thrombosis/Pulmonary Embolism Present on Admission: No _ (1) Sepsis Qualifiers: Sepsis type: sepsis due to unspecified organism Qualified Code(s): A41.9 - Sepsis, unspecified organism (2) Alcohol withdrawal Qualifiers: Complication of substance-induced condition: uncomplicated Qualified Code(s) : F10.230 - Alcohol dependence with withdrawal, uncomplicated
[2018-10-12] MEDS ORDERED: Ibuprofen 600 MG Tablet PO PRN (15:04)
[2018-10-13] MEDS: Piperacil/Tazo 4.5 GM Premix 4.5 GM/100 ML BAG IV.SIG SCH ×4 (03:29→20:29)
[2018-10-13 05:40] LABS: Baso # (Auto) 0.1 th/mm3 (0.0-0.2); Baso % (Auto) 0.6 % (0.0-2.0); Eos # (Auto) 0.2 th/mm3 (0.0-0.4); Eos % (Auto) 1.9 % (0.0-4.0); Hematocrit 39.5 % (39.0-51.0); Hemoglobin 13.5 gm/dL (13.0-17.0); Lymph # (Auto) 2.1 th/mm3 (1.0-4.8); Lymph % (Auto) 21.2 % (9.0-44.0); Mean Corpuscular HGB Conc 34.1 % (32.0-36.0); Mean Corpuscular Hemoglobin 30.3 pg (27.0-34.0); Mean Corpuscular Volume 88.8 fL (80.0-100.0); Mean Platelet Volume 9.1 fL (7.0-11.0); Mono # (Auto) 0.7 th/mm3 (0.0-0.9); Mono % (Auto) 6.7 % (0.0-8.0); Neut # (Auto) 6.9 th/mm3 (1.8-7.7); Neut % (Auto) 69.6 % (16.0-70.0); Platelet Count 128 th/mm3 (150-450); Red Blood Count 4.45 mil/mm3 (4.50-5.90); Red Cell Distribution Width 13.9 % (11.6-17.2); White Blood Count 9.9 th/mm3 (4.0-11.0)
--- NOTE | 2018-10-13 08:12 | P.PNIM ---
Subjective Interval history: f/u; flu/ alcohol withdrawal in no acute distress. denies sob/ no fever. has mild abdominal pain and diarrhea. still somewhat anxious with some hand tremors. Physical Exam Vital signs: Vital Signs 10/12/18 12:00 10/12/18 13:00 10/12/18 13:01 Temperature 98.5 F Pulse Rate 46 L 77 52 L Respiratory Rate 32 H 34 H 37 H Blood Pressure 164/93 H 174/122 H Pulse Oximetry 95 93 L 97 10/12/18 13:30 10/12/18 14:00 10/12/18 14:30 Temperature Pulse Rate 49 L 49 L 50 L Respiratory Rate 30 H 33 H 26 H Blood Pressure 161/92 H 140/85 145/88 H Pulse Oximetry 95 97 95 10/12/18 15:00 10/12/18 15:31 10/12/18 16:00 Temperature 99.1 F Pulse Rate 50 L 50 L 50 L Respiratory Rate 29 H 29 H 30 H Blood Pressure 144/82 H 152/99 H 142/83 H Pulse Oximetry 95 96 95 10/12/18 20:00 10/13/18 00:00 10/13/18 04:00 Temperature 98.2 F 98.4 F 99.0 F Pulse Rate 103 H 53 L 88 Respiratory Rate 20 18 18 Blood Pressure 125/63 126/62 132/77 Pulse Oximetry 99 97 98 Intake & Output 10/12/18 10/13/18 10/13/18 18:59 06:59 18:59 Intake Total 2476.2 / 2476.2 755 / 755 Balance 2476.2 / 2476.2 755 / 755 Weight 78.2 kg Intake: IV 2476.2 / 2476.2 715 / 715 Precedex Inj 1,000 MCG In NS 150 / 150 Inj 240 ML @ 0.2 MCG/KG/HR 3.97 mls/hr IV.CONT TITRATE PRN Rx# :[id number] NS Inj 1,000 ML @ 150 mls/hr IV 1000 / 1000 .CONT .Q6H40M [facility] Rx#:[id number] MVI-12 Inj 10 ML Folvite Inj 1 510.2 / 510.2 MG In NS Inj 500 ML @ 125 mls/ hr IV.SIG DAILY [facility] Rx#: [id number] Zosyn 4.5 GM Premix 4.5 gm In 200 / 200 200 / 200 100 ml @ 200 mls/hr IV.SIG Q6H [facility] Rx#:[id number] Thiamine Inj 100 MG In NS Inj 101 / 101 100 ML @ 100 mls/hr IV.SIG DAILY [facility] Rx#:[id number] Vancomycin Inj 1,500 MG In NS 515 / 515 515 / 515 Inj 500 ML @ 250 mls/hr IV.SIG Q12H [facility] Rx#:[id number] Oral 40 / 40 Other: # Voids 3 Date of Last Bowel Movement 10/10/18 - Constitutional no acute distress - Routine Respiratory Exam Present: CTA bilaterally - Routine Cardiovascular Exam Present: RRR - Routine Abdominal Exam Present: soft - Routine Extremities Exam Comments: no pedal edema. - Routine Neurological Exam Present: alert, oriented X3, tremors Results - Labs CBC & Chem 7: 10/13/18 04:25 10/12/18 04:33 Laboratory Results - last 24 hr 10/13/18 04:25 WBC 9.9 RBC 4.45 L Hgb 13.5 Hct 39.5 MCV 88.8 MCH 30.3 MCHC 34.1 RDW 13.9 Plt Count 128 L MPV 9.1 Neut % (Auto) 69.6 Lymph % (Auto) 21.2 Gooding % (Auto) 6.7 Eos % (Auto) 1.9 Baso % (Auto) 0.6 Neut # (Auto) 6.9 Lymph # (Auto) 2.1 Gooding # (Auto) 0.7 Eos # (Auto) 0.2 Baso # (Auto) 0.1 WBC Differential . Differential Comment Auto diff final Microbiology 10/11/18 02:30 Blood - Peripheral Aerobic Blood Culture - Preliminary No growth in 1 day 10/11/18 02:30 Blood - Peripheral Anaerobic Blood Culture - Preliminary No growth in 1 day 10/11/18 02:40 Blood - Peripheral Aerobic Blood Culture - Preliminary No growth in 1 day 10/11/18 02:40 Blood - Peripheral Anaerobic Blood Culture - Preliminary No growth in 1 day Assessment and Plan - Assessment (1) Sepsis Code(s): A41.9 - Sepsis, unspecified organism Status: Acute (2) Influenza B Code(s): J10.1 - Influenza due to other identified influenza virus with other respiratory manifestations Status: Acute (3) Opiate withdrawal Code(s): F11.23 - Opioid dependence with withdrawal Status: Acute (4) Alcohol withdrawal Code(s): F10.239 - Alcohol dependence with withdrawal, unspecified Status: Acute - Plan Sepsis present on admission with leukocytosis, tachycardia with influenza- Continue Tamiflu Empiric IV Zosyn and vancomycin given due to history of IV drug use Preliminary blood culture shows no growth at this time, will discontinue antibiotics if remains negative. Leukocytosis has been trending down. Supportive care and IV fluid hydration Alcohol & opiate abuse with withdrawal Continue CIWA protocol Low-dose Librium Schedule clonidine Continue thiamine and multivitamins. Secession counseling and follow-up as an outpatient for continued drug rehab Anorexiastatus post dietitian evaluation, added supplement Hypokalemiarepleted left elbow foreign body; awaiting hand surgery evaluation. DVT prophylaxisSCD (1) Sepsis Qualifiers: Sepsis type: sepsis due to unspecified organism Qualified Code(s): A41.9 - Sepsis, unspecified organism (4) Alcohol withdrawal Qualifiers: Complication of substance-induced condition: uncomplicated Qualified Code(s) : F10.230 - Alcohol dependence with withdrawal, uncomplicated
[2018-10-13] MEDS: Thiamine Inj 100 MG in Sodium Chlor 0.9% Inj 100 ML IV.SIG SCH (09:00)
[2018-10-13] MEDS: Senna/Docusate Sodium 8.6/50 MG Tablet PO SCH ×2 (09:11→20:30)
[2018-10-13] MEDS: Oseltamivir Phosphate 75 MG Capsule PO SCH ×2 (09:11→20:30)
[2018-10-13] MEDS: Multivitamin Inj 10 ML, Folic Acid Inj 1 MG in Sodium Chlor 0.9% Inj 500 ML IV.SIG SCH (09:20)
[2018-10-13] MEDS ORDERED: Pharmacy Ordered Lab Info OTHER ONE (10:45)
[2018-10-13] MEDS: Vancomycin Inj 1,500 MG in Sodium Chlor 0.9% Inj 500 ML IV.SIG SCH ×2 (11:20→23:29)
[2018-10-13] MEDS: LORazepam 1 MG Tablet PO PRN ×3 (11:39→20:35)
[2018-10-13] MEDS: Sod Chloride 0.9% Inj 1,000 ML IV.CONT SCH ×3 (16:30→16:49)
[2018-10-14] MEDS: Sod Chloride 0.9% Inj 1,000 ML IV.CONT SCH ×4 (02:30→19:31)
[2018-10-14] MEDS: LORazepam 1 MG Tablet PO PRN ×5 (03:18→21:27)
[2018-10-14] MEDS: Piperacil/Tazo 4.5 GM Premix 4.5 GM/100 ML BAG IV.SIG SCH ×2 (03:18→09:32)
--- NOTE | 2018-10-14 08:32 | P.CONOP ---
[facility] Orthopedics Consult Note - [facility] Consult date: 10/14/18 Requesting physician: Sandeep Navarro Chief complaint: Retained left forearm needle Narrative: 33-year-old gentleman with hepatitis C, history of opiate and alcohol abuse, admitted for the treatment of influenza, opiate/alcohol withdrawal. 24 hours prior to admission, he notes that he was injecting his left antecubital fossa with an insulin needle when the needle tip broke off. X-ray evaluation was consistent with a retained foreign body in the subcutaneous tissues, hence hand surgery consultation was requested. At bedside, patient localizes pain to the subcutaneous tissue about the retained foreign body. Denies pain with passive range of motion of the elbow. No underlying fluctuance or erythema at the site of the retained foreign body. Denies paresthesias to the hand. Denies other complaints. Review of Systems Constitutional: Reports body ache(s), Reports chills, Reports fever(s) Ears, Nose, Mouth, and Throat: Denies abnormal hearing Cardiovascular: Denies chest pain Respiratory: Reports cough Gastrointestinal: Denies abdominal pain Musculoskeletal: Denies numbness Neurologic: Denies tingling/numbness/burning sensations Psychiatric: Denies anxiety, Denies depression PMFSH - History History Provided By: Patient - Medical History Medical History: Medical History (Last Updated 10/12/18 @ 07:38 by Dionne Ortiz) Alcohol abuse Alcohol withdrawal seizure History of MRSA infection Onset Date: ~10/11/18 Bipolar 1 disorder Opiate addiction - Surgical History Surgical History: Surgical History (Last Reviewed 10/11/18 @ 04:45 by Mirta Finley MD) H/O shoulder surgery Hx of appendectomy - Family History Family History: Family History (Last Updated 10/11/18 @ 04:47 by Mirta Finley MD) Other Coronary artery disease - Tobacco History Second Hand Smoke Exposure: Yes Tobacco Use In Past 30 Days: Yes Smoking Status: Heavy tobacco smoker Tobacco Type: Cigarettes - Alcohol History How Often Do You Have a Drink Containing Alcohol: 4 or more times a week - Substance Use History Substance History: Active Abuse - Substance Use Type Heroin Status: Active Route Used: Intravenously Reason for Use: Get High - Travel History Recent Travel in the [place] Within the Last 8 Weeks: No Recent Travel Out of the Country Within the Last 8 Weeks: No - Immunization History Tetanus Immunization: <5 Years Tetanus Immunization Year if Known: 2018 Hx Influenza Vaccine This Season: No Medications and Allergies Active Medications: Active Medications Acetaminophen (Tylenol) 650 mg PO Q4H PRN PRN Reason: headache/fever Acetaminophen (Tylenol) 650 mg PO Q6HR PRN PRN Reason: PAIN SCALE 1 TO 2 Al Hydroxide/Mg Hydroxide (Milk Of Magnesia Liq) 30 ml PO Q12H PRN PRN Reason: Mild Constipation Bisacodyl (Dulcolax Supp) 10 mg RECTAL DAILY PRN PRN Reason: SEVERE CONSITIPATION Chlordiazepoxide (Librium) 5 mg PO Q8H [facility] Last Admin: 10/14/18 03:18 Dose: 5 mg Clonidine HCl (Catapres) 0.1 mg PO Q6H PRN PRN Reason: For SBP >/= 180, DBP >/= 100 Last Admin: 10/12/18 12:40 Dose: 0.1 mg Clonidine HCl (Catapres) 0.1 mg PO Q8HR [facility] Last Admin: 10/14/18 05:12 Dose: 0.1 mg Flumazenil (Romazecon Inj) 0.2 mg IV.PUSH Q1M PRN PRN Reason: OVERSEDATION Haloperidol Lactate (Haldol Inj) 1 mg IV.PUSH Q15M PRN PRN Reason: for severe agitation Sodium Chloride (Ns Inj) 1,000 mls @ 100 mls/hr IV.CONT .Q10H [facility] Last Admin: 10/14/18 02:30 Dose: 100 mls/hr Multivitamins 10 ml/ Folic (Acid 1 mg/ Sodium Chloride) 510.2 mls @ 125 mls/hr IV.SIG DAILY [facility] Stop: 10/16/18 08:59 Last Infusion: 10/13/18 13:25 Dose: Infused Thiamine HCl 100 mg/ Sodium (Chloride) 101 mls @ 100 mls/hr IV.SIG DAILY [facility] Stop: 10/14/18 08:59 Last Infusion: 10/13/18 10:10 Dose: Infused Piperacillin/Tazobactam/Dextrose (Zosyn 4.5 Gm Premix) 4.5 gm in 100 mls @ 200 mls/hr IV.SIG Q6H [facility] Last Infusion: 10/14/18 03:48 Dose: Infused Vancomycin HCl 1,500 mg/ (Sodium Chloride) 515 mls @ 250 mls/hr IV.SIG Q12H [facility] Last Infusion: 10/14/18 02:55 Dose: Infused Dexmedetomidine HCl 1,000 mcg/ (Sodium Chloride) 250 mls @ 3.97 mls/hr IV.CONT TITRATE PRN; Protocol PRN Reason: Per Protocol Last Titration: 10/12/18 15:57 Dose: 0 mcg/kg/hr, 0 mls/hr Ibuprofen (Motrin) 600 mg PO Q6H PRN PRN Reason: pain scale 6 to 10 Lactulose (Lactulose Liq) 30 ml PO DAILY PRN PRN Reason: SEVERE CONSITIPATION Lorazepam (Ativan) 1 mg PO Q4H PRN PRN Reason: for CIWA 8-10 Last Admin: 10/14/18 03:18 Dose: 1 mg Lorazepam (Ativan) 2 mg PO Q2H PRN PRN Reason: for CIWA 11-14 Last Admin: 10/12/18 18:47 Dose: 2 mg Lorazepam (Ativan Inj) 2 mg IV.PUSH Q2H PRN PRN Reason: for CIWA 11-14 Last Admin: 10/13/18 00:13 Dose: 2 mg Lorazepam (Ativan Inj) 2 mg IV.PUSH Q1H PRN PRN Reason: for CIWA 15-20 Last Admin: 10/13/18 09:08 Dose: 2 mg Lorazepam (Ativan Inj) 2 mg IV.PUSH Q15M PRN PRN Reason: for CIWA > 20 Last Admin: 10/11/18 17:32 Dose: 2 mg Lorazepam (Ativan Inj) 1 mg IV.PUSH Q4H PRN PRN Reason: for CIWA 8-10 Last Admin: 10/13/18 03:36 Dose: 1 mg Naloxone HCl (Narcan Inj) 0.4 mg IV.PUSH UNSCH PRN PRN Reason: SEE LABEL COMMENTS Naloxone HCl (Narcan Inj) 0.4 mg IV.PUSH UNSCH PRN PRN Reason: SEE LABEL COMMENTS Ondansetron HCl (Zofran Inj) 4 mg IV.PUSH Q6H PRN PRN Reason: NAUSEA OR VOMITING Oseltamivir Phosphate (Tamiflu) 75 mg PO BID [facility] Stop: 10/16/18 08:59 Last Admin: 10/13/18 20:30 Dose: 75 mg Pharmacy Profile Note (Vancomycin Consult Pharmacy) 1 each OTHER UNSCH PRN PRN Reason: Pharmacy to dose Senna/Docusate Sodium (Kathie-Colace) 1 tab PO BID [facility] Last Admin: 10/13/18 20:30 Dose: 1 tab Sennosides (Senokot) 17.2 mg PO Q12H PRN PRN Reason: Moderate Constipation Sodium Chloride (Ns Flush) 2 ml IV.FLUSH BID [facility] Last Admin: 10/13/18 20:30 Dose: Not Given Sodium Chloride (Ns Flush) 2 ml IV.FLUSH PRN PRN PRN Reason: FLUSH AFTER USING IV ACCESS Last Admin: 10/11/18 17:32 Dose: 2 ml Thiamine HCl (Vitamin B1) 100 mg PO DAILY [facility] Last Admin: 10/14/18 05:11 Dose: 100 mg Tramadol HCl (Ultram) 50 mg PO Q4H PRN PRN Reason: PAIN SCALE 3 TO 5 Last Admin: 10/13/18 20:35 Dose: 50 mg Allergies Allergy/AdvReac Type Severity Reaction Status Date / Time No Known Allergies Allergy Verified 08/17/18 12:11 Home Medications Medication Instructions Recorded Confirmed Type clonidine HCl 0.1 mg PO BID PRN 10/11/18 10/11/18 History Exam Vital signs: Vital Signs 10/13/18 12:00 10/13/18 16:00 10/13/18 20:00 Temperature 97.4 F L 98.5 F 98.2 F Pulse Rate 48 L 68 64 Respiratory Rate 17 19 18 Blood Pressure 150/84 H 150/81 H 139/74 Pulse Oximetry 99 99 96 10/13/18 21:05 10/14/18 00:00 10/14/18 03:54 Temperature 98.7 F Pulse Rate 50 L 50 L Respiratory Rate 18 18 Blood Pressure 131/84 Pulse Oximetry 96 10/14/18 04:00 Temperature 99.0 F Pulse Rate 50 L Respiratory Rate 18 Blood Pressure 139/71 Pulse Oximetry 98 Intake & Output 10/13/18 10/14/18 10/14/18 18:59 06:59 18:59 Intake Total 2221.2 / 2221.2 2475 / 2475 Output Total 1000 / 1000 Balance 2221.2 / 2221.2 1475 / 1475 Intake: IV 1326.2 / 1326.2 1715 / 1715 NS Inj 1,000 ML @ 100 mls/hr IV 1000 / 1000 .CONT .Q10H [facility] Rx#:[id number] MVI-12 Inj 10 ML Folvite Inj 1 510.2 / 510.2 MG In NS Inj 500 ML @ 125 mls/ hr IV.SIG DAILY [facility] Rx#: [id number] Zosyn 4.5 GM Premix 4.5 gm In 200 / 200 200 / 200 100 ml @ 200 mls/hr IV.SIG Q6H [facility] Rx#:[id number] Thiamine Inj 100 MG In NS Inj 101 / 101 100 ML @ 100 mls/hr IV.SIG DAILY [facility] Rx#:[id number] Vancomycin Inj 1,500 MG In NS 515 / 515 515 / 515 Inj 500 ML @ 250 mls/hr IV.SIG Q12H [facility] Rx#:[id number] Oral 895 / 895 760 / 760 Output: Urine 1000 / 1000 Other: # Voids 10 # Bowel Movements 3 - Constitutional no acute distress - Routine HEENT Exam Head: Present: normocephalic, atraumatic - Routine Respiratory Exam Absent: accessory muscle use - Routine Cardiovascular Exam Present: RRR - Routine Abdominal Exam Present: soft. Absent: distended - Routine Extremities Exam Comments: Focused evaluation of the left upper extremity demonstrates no edema, erythema or underlying fluctuance to the forearm or elbow. There is full range of motion both passive and active of the elbow. There is focal tenderness overlying the antecubital fossa at the site of his recent injection. There is no evident retained foreign body or laceration visible on exam. Sensation is intact to the median, radial, ulnar nerve distribution. There is a 2+ radial pulse. Full hand range of motion. - Routine Skin Exam Present: intact. Absent: erythema - Routine Neurological Exam Present: alert, oriented X3 Results - Labs Result Diagrams: 10/13/18 04:25 10/14/18 05:05 Labs: Laboratory Results - last 24 hr 10/13/18 10/14/18 10:57 05:05 Creatinine 1.32 H Estimated GFR 63 L Vancomycin Trough 20.4 H Assessment and Plan - Assessment and Plan 33-year-old gentleman, history of IV drug abuse, opiate and tobacco abuse, presents with influenza and currently admitted to the medicine service. On presentation to the ER, he endorsed that an insulin needle broke off when injecting IV drugs to the left antecubital fossa. Radiographic evaluation is consistent with retained foreign body and subcutaneous tissue, consistent with needle tip. On examination, he has no evidence of cellulitis or abscess to the left upper extremity. Blood cultures are negative to date. I discussed recommendations for expectant observation. No indications for surgical intervention at present time. We discussed that should he develop evidence of abscess focal to the site of retained foreign body, that we would consider foreign body excision as possible infectious source. Recommend continued medical management for the treatment of influenza. Please contact hand surgery should his examination change or symptoms acutely worsen. All questions and concerns were addressed at bedside.
[2018-10-14] MEDS: Senna/Docusate Sodium 8.6/50 MG Tablet PO SCH ×2 (09:29→21:27)
[2018-10-14] MEDS: Oseltamivir Phosphate 75 MG Capsule PO SCH ×2 (09:29→20:23)
[2018-10-14] MEDS: Multivitamin Inj 10 ML, Folic Acid Inj 1 MG in Sodium Chlor 0.9% Inj 500 ML IV.SIG SCH (09:49)
--- NOTE | 2018-10-14 10:07 | P.PNIM ---
Subjective Interval history: in no acute distress. looks and feels better today. no fever. still has some diarrhea. Physical Exam Vital signs: Vital Signs 10/13/18 12:00 10/13/18 16:00 10/13/18 20:00 Temperature 97.4 F L 98.5 F 98.2 F Pulse Rate 48 L 68 64 Respiratory Rate 17 19 18 Blood Pressure 150/84 H 150/81 H 139/74 Pulse Oximetry 99 99 96 10/13/18 21:05 10/14/18 00:00 10/14/18 03:54 Temperature 98.7 F Pulse Rate 50 L 50 L Respiratory Rate 18 18 Blood Pressure 131/84 Pulse Oximetry 96 10/14/18 04:00 10/14/18 08:00 Temperature 99.0 F 98.5 F Pulse Rate 50 L 51 L Respiratory Rate 18 17 Blood Pressure 139/71 147/81 H Pulse Oximetry 98 97 Intake & Output 10/13/18 10/14/18 10/14/18 18:59 06:59 18:59 Intake Total 2221.2 / 2221.2 2475 / 2475 1000 / 1000 Output Total 1000 / 1000 425 / 425 Balance 2221.2 / 2221.2 1475 / 1475 575 / 575 Intake: IV 1326.2 / 1326.2 1715 / 1715 1000 / 1000 NS Inj 1,000 ML @ 100 mls/hr IV 1000 / 1000 1000 / 1000 .CONT .Q10H [facility] Rx#:[id number] MVI-12 Inj 10 ML Folvite Inj 1 510.2 / 510.2 MG In NS Inj 500 ML @ 125 mls/ hr IV.SIG DAILY [facility] Rx#: [id number] Zosyn 4.5 GM Premix 4.5 gm In 200 / 200 200 / 200 100 ml @ 200 mls/hr IV.SIG Q6H [facility] Rx#:[id number] Thiamine Inj 100 MG In NS Inj 101 / 101 100 ML @ 100 mls/hr IV.SIG DAILY [facility] Rx#:[id number] Vancomycin Inj 1,500 MG In NS 515 / 515 515 / 515 Inj 500 ML @ 250 mls/hr IV.SIG Q12H [facility] Rx#:[id number] Oral 895 / 895 760 / 760 Output: Urine 1000 / 1000 425 / 425 Other: # Voids 10 # Bowel Movements 3 - Constitutional no acute distress - Routine Respiratory Exam Present: CTA bilaterally - Routine Cardiovascular Exam Present: RRR - Routine Abdominal Exam Present: soft - Routine Extremities Exam Comments: no pedal edema. - Routine Neurological Exam Present: alert, oriented X3 Results - Labs CBC & Chem 7: 10/13/18 04:25 10/14/18 05:05 Laboratory Results - last 24 hr 10/13/18 10/14/18 10:57 05:05 Creatinine 1.32 H Estimated GFR 63 L Vancomycin Trough 20.4 H Microbiology 10/11/18 02:30 Blood - Peripheral Aerobic Blood Culture - Preliminary No growth in 2 days 10/11/18 02:30 Blood - Peripheral Anaerobic Blood Culture - Preliminary No growth in 2 days 10/11/18 02:40 Blood - Peripheral Aerobic Blood Culture - Preliminary No growth in 2 days 10/11/18 02:40 Blood - Peripheral Anaerobic Blood Culture - Preliminary No growth in 2 days Assessment and Plan - Assessment (1) Sepsis Code(s): A41.9 - Sepsis, unspecified organism Status: Acute (2) Influenza B Code(s): J10.1 - Influenza due to other identified influenza virus with other respiratory manifestations Status: Acute (3) Opiate withdrawal Code(s): F11.23 - Opioid dependence with withdrawal Status: Acute (4) Alcohol withdrawal Code(s): F10.239 - Alcohol dependence with withdrawal, unspecified Status: Acute - Plan Sepsis present on admission with leukocytosis, tachycardia with influenza- Continue Tamiflu blood culture shows no growth at this time, will discontinue antibiotics today. Leukocytosis has been trending down. Supportive care and IV fluid hydration Acute kidney injury stop IV antibiotics and continue with IV fluid- BMP tomorrow. Alcohol & opiate abuse with withdrawal Continue CIWA protocol Low-dose Librium Schedule clonidine Continue thiamine and multivitamins. Secession counseling and follow-up as an outpatient for continued drug rehab Anorexiastatus post dietitian evaluation, added supplement Hypokalemiarepleted left elbow foreign body; hand surgery evaluation appreciated; no indication for surgery at this time. DVT prophylaxisSCD Discharge Planning: home within the next 1-2 days if stable and renal function stable. (1) Sepsis Qualifiers: Sepsis type: sepsis due to unspecified organism Qualified Code(s): A41.9 - Sepsis, unspecified organism (4) Alcohol withdrawal Qualifiers: Complication of substance-induced condition: uncomplicated Qualified Code(s) : F10.230 - Alcohol dependence with withdrawal, uncomplicated
[2018-10-15] MEDS: Sod Chloride 0.9% Inj 1,000 ML IV.CONT SCH ×2 (01:30→05:31)
[2018-10-15] MEDS: LORazepam 1 MG Tablet PO PRN ×2 (04:20→10:10)
[2018-10-15 07:59] LABS: Calcium 8.3 mg/dL (8.5-10.1); Carbon Dioxide 26.2 meq/L (21.0-32.0); Potassium 3.2 meq/L (3.5-5.1)
[2018-10-15] MEDS: Oseltamivir Phosphate 75 MG Capsule PO SCH (09:43)
[2018-10-15] MEDS: Senna/Docusate Sodium 8.6/50 MG Tablet PO SCH (09:43)
--- NOTE | 2018-10-15 12:17 | P.PNIM ---
Subjective Interval history: looks and feels much better today. no fever. wants to go home today. Physical Exam Vital signs: Last Vital Signs Temp 98.3 F 10/15/18 08:00 Pulse 67 10/15/18 08:00 Resp 18 10/15/18 08:00 BP 131/85 10/15/18 08:00 Pulse Ox 99 10/15/18 08:00 Intake & Output 10/13/18 10/14/18 10/15/18 10/16/18 06:59 06:59 06:59 06:59 Intake Total 3231.2 / 3231.2 4696.2 / 4696.2 6485.2 / 6485.2 Output Total 1000 / 1000 625 / 625 Balance 3231.2 / 3231.2 3696.2 / 3696.2 5860.2 / 5860.2 Weight 78.2 kg 78.2 kg Constitutional no acute distress Routine Respiratory Exam Present CTA bilaterally Routine Cardiovascular Exam Present RRR Routine Abdominal Exam Present soft Routine Extremities Exam Comments: no pedal edema. Routine Neurological Exam Present alert and oriented X3 Results Labs CBC & Chem 7: 10/13/18 04:25 10/15/18 06:29 Labs: Microbiology 10/11/18 02:30 Blood - Peripheral Aerobic Blood Culture - Preliminary No growth in 4 days 10/11/18 02:30 Blood - Peripheral Anaerobic Blood Culture - Preliminary No growth in 4 days 10/11/18 02:40 Blood - Peripheral Aerobic Blood Culture - Preliminary No growth in 4 days 10/11/18 02:40 Blood - Peripheral Anaerobic Blood Culture - Preliminary No growth in 4 days Assessment and Plan (1) Sepsis: Code(s): A41.9 - Sepsis, unspecified organism Status: Acute (2) Influenza B: Code(s): J10.1 - Influenza due to other identified influenza virus with other respiratory manifestations Status: Acute (3) Opiate withdrawal: Code(s): F11.23 - Opioid dependence with withdrawal Status: Acute (4) Alcohol withdrawal: Code(s): F10.239 - Alcohol dependence with withdrawal, unspecified Status: Acute Plan Sepsis present on admission with leukocytosis, tachycardia with influenza- clinically has much improved. Continue Tamiflu blood culture shows no growth at this time. Leukocytosis has been trending down.Supportive care and IV fluid hydration Acute kidney injury resolved. Alcohol & opiate abuse with withdrawal- clinically improved. Low-dose Librium Schedule clonidine Continue thiamine and multivitamins. Secession counseling and follow-up as an outpatient for continued drug rehab Anorexiastatus post dietitian evaluation, added supplement Hypokalemiarepleted left elbow foreign body; hand surgery evaluation appreciated; no indication for surgery at this time. hepatitis C- patient is aware- f/u as outpatient. DVT prophylaxisSCD Discharge Planning: dc home today. f/u; pcp. see med list. d/w the patient. E-Foarsce was reviewed before discharge. Progress Note: Quality VTE Deep Vein Thrombosis/Pulmonary Embolism Present on Admission: No _ (1) Alcohol withdrawal Qualifiers: Complication of substance-induced condition: uncomplicated Qualified Code(s) : F10.230 - Alcohol dependence with withdrawal, uncomplicated (2) Sepsis Qualifiers: Sepsis type: sepsis due to unspecified organism Qualified Code(s): A41.9 - Sepsis, unspecified organism
--- NOTE | 2018-10-15 12:20 | P.DS ---
DS: Providers Date of admission: 10/11/18 03:59 Primary care physician: No Primary Care Physician Consults: 10/11/18 11:41 Consult to Hand Surgery Routine Consulting Provider: Farhat Silva Reason for Consultation: septic pt, foreign body dirty needle in left AC fossa; ortho advising hand Notified:: Service Spoke with:: prakash Date Notified:: 10/11/18 Time Notified:: 11:46 Ordering Provider: EHSAN 10/13/18 20:59 Consult to Hand Surgery Routine Consulting Provider: Farhat Silva Preferred Counter Maker:: Farhat Silva Reason for Consultation: septic pt, foreign body dirty needle in left AC fossa; ortho advising hand Notified:: Service Spoke with:: Francesca Date Notified:: 10/13/18 Time Notified:: 23:03 Ordering Provider: EHSAN Brief History from admission: 33-year-old male with past medical history significant for alcohol and opiate abuse presents to the emergency department for the evaluation of sudden onset headache, nausea/vomiting and shaking. The patient reports his symptoms started around 6 PM last night. He initially thought that he was going through alcohol and opiate withdrawal as it is been approximately 24 hours since his last use of either substance. He reports to using 1 g of heroin intravenously daily and drinking 2 pints of hard alcohol daily. He has previously had a seizure from alcohol withdrawal. He denies any fevers/chills. No chest pain or shortness of breath. No focal neurologic deficits. No back pain. DS: Diagnosis Discharge Diagnosis (1) Sepsis: Status: Acute (2) Influenza B: Status: Acute (3) Opiate withdrawal: Status: Acute (4) Alcohol withdrawal: Status: Acute DS: Summary Sepsis present on admission with leukocytosis, tachycardia with influenza- clinically has much improved. Continue Tamiflu blood culture shows no growth at this time. Leukocytosis has been trending down. Supportive care and IV fluid hydration Acute kidney injury resolved. Alcohol & opiate abuse with withdrawal- clinically improved. Low-dose Librium Schedule clonidine Continue thiamine and multivitamins. [facility] counseling and follow-up as an outpatient for continued drug rehab Anorexiastatus post dietitian evaluation, added supplement Hypokalemiarepleted hepatitis C- patient is aware; f/u as outpatient. left elbow foreign body; hand surgery evaluation appreciated; no indication for surgery at this time. Time Spent with Patient Total time spent providing and/or coordinating discharge services: Less than 30 minutes Quality: VTE Deep Vein Thrombosis/Pulmonary Embolism Present on Admission: No Exam Narrative Exam Narrative: looks and feels comfortable. on physical exam; good air entry bilaterally with soft abdomen and no pedal edema. Results Procedures completed during hospitalization: none. Labs on day of discharge: Labs from last 24 hours 10/15/18 06:29 Sodium 142 Potassium 3.2 L Chloride 108 H Carbon Dioxide 26.2 Anion Gap 8 BUN 8 Creatinine 1.00 Estimated GFR 87 L Random Glucose 99 Calcium 8.3 L Preliminary micro results at discharge 10/11/18 02:30 Aerobic Blood Culture - Preliminary Blood - Peripheral No growth in 4 days Anaerobic Blood Culture - Preliminary No growth in 4 days 10/11/18 02:40 Aerobic Blood Culture - Preliminary Blood - Peripheral No growth in 4 days Anaerobic Blood Culture - Preliminary No growth in 4 days Impressions ITS Impressions Upper Extremity Ultrasound 10/11/18 00:00 CONCLUSION: The 6 mm needle fragment is identified in the antecubital fossa and measures approximately 2 mm from the skin surface. A jeanna was placed on the overlying skin. Elbow X-Ray 10/11/18 02:05 CONCLUSION: Foreign body as detailed above. Chest X-Ray 10/11/18 03:29 CONCLUSION: No acute cardiopulmonary disease. Discharge Plan Discharge Disposition Patient Disposition: 01 Discharge Home Discharge Condition Condition: Stable Discharge Order Discharge Orders: Discharge Order (Routine); Ordered 10/15/18 Ordered By: Sandeep Navarro Physicians Team Primary Care Provider: Primary Care Sonny,Allegra Attending Provider: Sandeep Navarro Other Providers: Farhat Silva Rxs /Orders / Referrals /Forms Prescriptions: New clonidine HCl [Catapres] 0.1 mg Tablet 0.1 mg PO Q8HR Qty: 10 RF: 0 chlordiazepoxide HCl 5 mg Capsule 5 mg PO DIRECTED Qty: 6 RF: 0 thiamine HCl (vitamin B1) 100 mg Tablet 100 mg PO DAILY Qty: 30 RF: 0 oseltamivir [Tamiflu] 75 mg capsule 75 mg PO DAILY Qty: 2 RF: 0 multivitamin tablet 1 tab PO DAILY Qty: 30 RF: 0 Discontinued chlordiazepoxide HCl 25 mg capsule 25 mg PO Q6-8H PRN (Reason: alcohol withdrawal) Qty: 12 RF: 0 clonidine HCl 0.1 mg Tablet 0.1 mg PO BID PRN (Reason: Alcohol Withdrawal) RF: 0 Referrals: Primary Care Allegra Dennis [Primary Care Provider] - See Instructions ([facility] [phone] [place], [place] [address] *[facility] offers same day APPT. Call the morning you would like to be seen Office opens at 8:00am ) Discharge Instructions Patient Printed Instructions: Clonidine (By mouth), Influenza (DC), Sepsis (GEN ), Alcohol Withdrawal (DC) Status ED Status: Left Department
== END 2018-10-15 14:17 | disposition home or self-care (01) ==
LOC: NEPE 01:55 → NEDA 03:59 → NEPFCDU 06:12 → HIMC 11:38 → N07 10-12 17:08
PROVIDERS: ADMIT Internal Medicine; ATTEND Internal Medicine
DX: F11.23 Opioid dependence with withdrawal; A41.9 Sepsis, unspecified organism; Z90.49 Acquired absence of other specified parts of digestive tract; E87.6 Hypokalemia; J10.1 Influenza due to other identified influenza virus with other respiratory manifestations; M79.5 Residual foreign body in soft tissue; F31.9 Bipolar disorder, unspecified; F10.230 Alcohol dependence with withdrawal, uncomplicated; R56.9 Unspecified convulsions; N17.9 Acute kidney failure, unspecified; F41.9 Anxiety disorder, unspecified; F17.210 Nicotine dependence, cigarettes, uncomplicated; Z82.49 Family history of ischemic heart disease and other diseases of the circulatory system; B19.20 Unspecified viral hepatitis C without hepatic coma